=== PATIENT | male | born 2000 | race Caucasian/White ===

== ENCOUNTER 2019-09-10 13:41 | Emergency (ER) | payer OTHER ==
[~2019-09-10] VITALS: Ht 177.8 cm; Wt 71.6 kg
[2019-09-10 13:47] VITALS: BP 121/76; TEMP 99.4
[2019-09-10 14:41] LABS: STREP SCREEN NEGATIVE
[2019-09-10] MEDS ORDERED: CEPHALEXIN500 M1 PO (14:59)
[2019-09-10 15:20] VITALS: PULSE 87
== END 2019-09-10 15:20 | disposition home or self-care (01) ==
LOC: COL.ER 13:41
PROVIDERS: Emergency Medicine
DX: J03.90 Acute tonsillitis, unspecified (principal)